=== PATIENT | female | born 1950 | race Caucasian/White ===

== ENCOUNTER → 2016-04-25 | Outpatient (CLI) | payer OTHER, MEDICARE ==
--- NOTE | 2016-04-25 11:40 | DIAGNOSTIC IMAGING REPORT ---
THYROID ULTRASONOGRAPHY CLINICAL HISTORY: Nontoxic multinodular goiter COMPARISON STUDY: Outside study dated 04/13/2013, March 23, 2010 FINDINGS: Outside study dated 04/13/2013 the right lobe of thyroid measures 56 x 21 x 22 mm. There is an essentially stable solid circumscribed hypoechoic lower pole right lobe thyroid nodule measuring 12 mm. There is a second solid right lobe nodule measuring 10 mm. There is a third probably cystic 11 mm nodule. Additional smaller circumscribed hypoechoic nodules are evident. The left lobe measures 52 x 20 x 19 mm. There is a dominant solid mildly lobulated hypoechoic left lobe nodule containing calcifications measuring 19 mm in long axis. Additional subcentimeter left lobe nodules are evident. IMPRESSION: Multinodular thyroid goiter, relatively similar to the preceding study. No greater than 3 mm interval increase in size of any given nodule. The most suspicious nodule from a morphologic standpoint remains a lower pole left lobe nodule which measures 19 mm and contains an area of calcification. This nodule is however essentially stable in size increasing only approximately 2 mm over the past 6 years. Electronically signed by: Dilip Lopez M.D. 04/25/2016 11:39 AM Dictated Date/Time: 04/25/2016 11:33 AM
== END | disposition home or self-care (01) ==
LOC: C.ULTR 10:26
PROVIDERS: ATTEND Internal Medicine Endocrinology, Diabetes & Metabolism
DX: E04.2 Nontoxic multinodular goiter (principal)

== ENCOUNTER → 2016-04-25 | Outpatient (CLI) | payer OTHER, MEDICARE ==
[2016-04-25 16:59] LABS: THYROID STIMULATING HORMONE 0.915 uIu/ml (0.300-4.500)
== END | disposition home or self-care (01) ==
LOC: C.LAB1850 12:59
PROVIDERS: ATTEND Internal Medicine Endocrinology, Diabetes & Metabolism
DX: E04.2 Nontoxic multinodular goiter (principal)